=== PATIENT | female | born 1960 | race Caucasian/White ===

== ENCOUNTER 2018-09-29 08:14 | Emergency (ER) | payer OTHER ==
[2018-09-29 08:20] VITALS: BP 130/66; PULSE 70; TEMP 97.8; BMI 22.8
[2018-09-29 08:49] LABS: URINE APPEARANCE CLEAR; URINE BILIRUBIN NEGATIVE (NEGATIVE); URINE COLOR YELLOW; URINE GLUCOSE (UA) NEGATIVE (NEGATIVE); URINE KETONE NEGATIVE (NEGATIVE); URINE LEUK ESTERASE TRACE (NEGATIVE); URINE NITRITE NEGATIVE (NEGATIVE); URINE PROTEIN NEGATIVE (NEGATIVE); URINE UROBILINOGEN 0.2 mg/dL (0.2-1.0)
--- NOTE | 2018-09-29 08:53 | PDOC ---
History of Present Illness - General Chief Complaint: Back Pain Stated Complaint: BACK PAIN Time Seen by Provider: 09/29/18 08:29 History Source: Patient Exam Limitations: No Limitations - History of Present Illness Initial Comments: 09/29/18 08:53 atient here with complaints of recurrent pain, dysuria, frequency of urination that started again yesterday. States was suffered from UTI proximally 2 weeks ago and was treated by her PMD. Is uncertain as to the type of medication, however feels she improved. Recurrent symptomsoccurred approximately 2-3 days ago, without fever, nausea or vomiting but has some lower abdominal pain and flank pain. Worse on the left than the right. No history of kidney stones. Denies vaginal drainage or discharge, no problems with bowels. Timing/Duration: unsure, 1 week Severity: mild, moderate Associated Symptoms: reports: denies symptoms Past History - Travel Traveled outside of the country in the last 30 days: No - Past Medical History Allergies/Adverse Reactions: Allergies Allergy/AdvReac Type Severity Reaction Status Date / Time No Known Allergies Allergy Verified 09/29/18 08:20 Home Medications: Ambulatory Orders No Home Medications 0 dose .ROUTE UTDICT 10/27/12 COPD: No - Suicide/Smoking/Psychosocial Hx Smoking Status: Yes Smoking History: Current every day smoker Number of Cigarettes Smoked Daily: 3 Information on smoking cessation initiated: No *Physical Exam - Vital Signs Last Vital Signs Temp Pulse Resp BP Pulse Ox 97.8 F 70 18 130/66 99 09/29/18 08:18 09/29/18 08:18 09/29/18 08:18 09/29/18 08:18 09/29/18 08:18
--- NOTE | 2018-09-29 09:16 | PDOC ---
History of Present Illness - General Chief Complaint: Back Pain Stated Complaint: BACK PAIN Time Seen by Provider: 09/29/18 08:29 History Source: Patient Exam Limitations: No Limitations - History of Present Illness Initial Comments: 09/29/18 09:19 patient states has had pain, frequency, and abdominal cramping for the past few days. States 2 weeks ago was treated with antibiotics for one week for a UTI States spell was improved however had a recurrence of symptoms a few days ago. Denies fevers and chills but has not felt well. Denies vaginal drainage or problems with bowels. Timing/Duration: unsure, changing over time Severity: mild, moderate Associated Symptoms: reports: denies symptoms Past History - Travel Traveled outside of the country in the last 30 days: No Close contact w/someone who was outside of country & ill: No - Past Medical History Allergies/Adverse Reactions: Allergies Allergy/AdvReac Type Severity Reaction Status Date / Time No Known Allergies Allergy Verified 09/29/18 08:20 Home Medications: Ambulatory Orders No Home Medications 0 dose .ROUTE UTDICT 10/27/12 Cephalexin Monohydrate [Keflex -] 500 mg PO Q8H #21 capsule 09/29/18 COPD: No - Reproductive History Is Patient Now?: No - Suicide/Smoking/Psychosocial Hx Smoking Status: Yes Smoking History: Current every day smoker Number of Cigarettes Smoked Daily: 3 Information on smoking cessation initiated: No Review of Systems - Review of Systems Able to Perform ROS?: Yes Is the patient limited [place] proficient: Yes Constitutional: Yes: Symptoms Reported, See HPI, Chills, Malaise. No: Fever HEENTM: No: Symptoms Reported Respiratory: Yes: See HPI. No: Symptoms reported ABD/GI: Yes: Symptoms Reported, See HPI, Abdominal cramping (mild suprapubic/ left lower- ). No: Nausea, Vomiting : Yes: Symptoms Reported, See HPI, Dysuria, Frequency, Urgency. No: Discharge Integumentary: No: Symptoms Reported All Other Systems: Reviewed and Negative *Physical Exam - Vital Signs Last Vital Signs Temp Pulse Resp BP Pulse Ox 97.8 F 70 18 130/66 99 09/29/18 08:18 09/29/18 08:18 09/29/18 08:18 09/29/18 08:18 09/29/18 08:18 - Physical Exam General Appearance: Yes: Nourished, Appropriately Dressed, Apparent Distress, Mild Distress HEENT: positive: [place]AN[place], Normal ENT Inspection, TMs Normal, Pharynx Normal Neck: positive: Supple. negative: Tender, Lymphadenopathy (R), Lymphadenopathy (L) Respiratory/Chest: positive: Lungs Clear, Normal Breath Sounds Gastrointestinal/Abdominal: positive: Normal Bowel Sounds, Tender (ild suprapubic tenderness, no rebound or guarding), Soft. negative: Distended, Guarding, Rebound Musculoskeletal: positive: Normal Inspection. negative: CVA Tenderness Extremity: positive: Normal Capillary Refill, Normal Inspection Integumentary: positive: Dry, Warm, Pale Neurologic: positive: fence erector II-XII NML intact, Fully Oriented, Alert, Normal Mood/ Affect, Normal Response, Motor Strength / ED Treatment Course - ADDITIONAL ORDERS Additional order review: Laboratory Results 09/29/18 08:30 Urine Color Yellow Urine Appearance Clear Urine pH 6.0 Ur Specific [place] 1.002 L Urine Protein Negative Urine Glucose (UA) Negative Urine Ketones Negative Urine Blood Trace Urine Nitrite Negative Urine Bilirubin Negative Urine Urobilinogen 0.2 Ur Leukocyte Esterase Trace Medical Decision Making - Medical Decision Making 09/29/18 09:18 race leukocytes and trace blood in urinalysis, due to patient's symptomatology and recent history of UTI will initiate antibiotic therapy. Patient will call me in 3 days for culture report and further planningtreatmentand follow-up will be made at that time *DC/Admit/Observation/Transfer Diagnosis at time of Disposition: UTI (urinary tract infection) Qualifiers: Urinary tract infection type: acute cystitis Hematuria presence: with hematuria Qualified Code(s): N30.01 - Acute cystitis with hematuria - Discharge Dispostion Disposition: HOME Condition at time of disposition: Stable Decision to Admit order: No - Prescriptions Prescriptions: Cephalexin Monohydrate [Keflex -] 500 mg PO Q8H #21 capsule - Referrals Referrals: Heron Mcbride [Primary Care Provider] - - Patient Instructions Printed Discharge Instructions: DI for Urinary Tract Infection (UTI) Additional Instructions: Rest, drink lots of fluids: Teas, water, soups Avoid contact with others until fevers and symptoms resolved Lots of handwashing and good hygiene Continue [id number] medications for symptomatic relief Tylenol or Motrin for fever and pain Continue all of antibiotics until completed Followup with private physician in one week for repeat urinalysis/reevaluation Return to emergency department for worsened symptoms, fevers, dehydration Call Rafy Sunday after 9AM - [phone] for culture results - Post Discharge Activity Forms/Work/School Notes: Back to Work
[2018-09-29 09:26] LABS: EPI CELLS 0.4 /HPF (0-5/HPF); HYALINE CASTS 0.73 /lpf (0-8); URINE BACTERIA 12.5 /hpf (NEGATIVE); URINE RBC 1.2 /hpf (0-4); URINE WBC 0.2 /hpf (0-5)
== END 2018-09-29 09:13 | disposition home or self-care (01) ==
LOC: JERFT 08:14
DX: N30.01 Acute cystitis with hematuria (principal)
CPT/HCPCS: 81003; 87086; 99283-25